=== PATIENT | male | born 1995 | race African-American/Black ===

== ENCOUNTER → 2018-10-06 | Emergency (ER) | payer BC ==
[~2018-10-06] VITALS: Ht 177.8 cm; Wt 93.0 kg
--- NOTE | 2018-10-07 01:06 | Diagnostic Imaging Report ---
HAND 3 VIEW LT - HOPD - 3 views HISTORY: Pain COMPARISON: None available. FINDINGS: Bones: No acute displaced fracture. Osseous alignment is within normal limits. Joints: The joint spaces are well-maintained. Soft tissues: Soft tissue swelling, especially in the thenar area. IMPRESSION: No acute radiographic abnormality. Signed by: Dr. Edison Gold MD on 10/07/2018 1:03 AM
== END | disposition home or self-care (01) ==
LOC: FSED 23:57
DX: S60.222A Contusion of left hand, initial encounter (principal); Y93.6A Activity, physical games generally associated with school recess, summer camp and children; Y92.328 Other athletic field as the place of occurrence of the external cause